=== PATIENT | male | born 1955 | race Caucasian/White ===

== ENCOUNTER → 2024-04-02 08:37 | Outpatient (REF) | payer BC, SELFPAY | LOC: RCS 08:37 | PROVIDERS: ATTENDING PHYSICIAN Family Medicine | DX: I10 Essential (primary) hypertension (principal); R00.1 Bradycardia, unspecified | CPT/HCPCS: 93225; 93226; 93306 ==

== ENCOUNTER → 2024-04-06 07:41 | Outpatient (REF) | payer BC, SELFPAY | LOC: RAD 07:41 | PROVIDERS: ATTENDING PHYSICIAN Family Medicine | DX: R42 Dizziness and giddiness (principal) | CPT/HCPCS: 93880 ==

== ENCOUNTER → 2024-09-14 11:40 | Outpatient (REF) | payer BC, SELFPAY | LOC: HWRAD 11:40 | PROVIDERS: ATTENDING PHYSICIAN Family Medicine | DX: M54.50 Low back pain, unspecified (principal) | CPT/HCPCS: 72110 ==